=== PATIENT | male | born 1930 | race Caucasian/White ===

== ENCOUNTER 2018-05-23 15:30 | Inpatient (IN) | payer MEDICARE, BC ==
[~2018-05-23] VITALS: Ht 177.8 cm; Wt 75.3 kg
[2018-05-23] MEDS ORDERED: DABI150C PO (15:43)
--- NOTE | 2018-05-23 15:50 | NUR ---
PT CAME IN FOR LEFT LEG SWELLING/PAIN/ POSSIBLE CELLULITIS. PT AAOX4. SEEN BY MD FOR EVAL. VSS. SAFETY AND COMFORT MEASURES PROVIDED. WILL MONITOR.
[2018-05-23] MEDS ORDERED: VANCOMYCIN 1 GM in IV D5W 250 ML IV ONE (16:00)
[2018-05-23 16:13] LABS: BASOPHILS # (AUTO) 0.1 /CMM (0.0-0.2); BASOPHILS % (AUTO) 1.5 % (0.0-2.0); HEMATOCRIT 35 % (39-51); HEMOGLOBIN 11.7 g/dL (13.5-17.5); LYMPHOCYTES # (AUTO) 0.9 /CMM (0.8-4.8); LYMPHOCYTES % (AUTO) 14.9 % (20.0-44.0); MEAN CORPUSCULAR HEMOGLOBIN 32 PG (26.0-33.0); MEAN CORPUSCULAR HGB CONC 33 g/dl (31.0-36.0); MEAN CORPUSCULAR VOLUME 96 fL (80-96); MONOCYTES # (AUTO) 0.9 /CMM (0.1-1.30); NEUTROPHILS # (AUTO) 3.8 /CMM (1.8-8.9); NEUTROPHILS % (AUTO) 64.6 % (43.0-81.0); PLATELET COUNT (AUTO) 215 /CMM (150-450); RDW COEFFICIENT OF VARIATION 13.5 (11.5-15.0); RED BLOOD CELL COUNT(AUTO) 3.67 MIL/uL (4.5-6.0); WHITE BLOOD COUNT (AUTO) 5.9 K/uL (4.3-11.0)
[2018-05-23 16:27] LABS: INR 1.11 (0.85-1.15)
[2018-05-23 16:28] LABS: CALCIUM, SERUM 8.8 mg/dL (8.5-10.1); CARBON DIOXIDE 27 mmol/L (21-32); CHLORIDE 103 mmol/L (98-107); CREATININE 1.3 mg/dL (0.6-1.3); GLUCOSE 95 mg/dL (74-106); POTASSIUM 4.3 mmol/L (3.5-5.1); SODIUM SERUM 137 mmol/L (136-145); UREA NITROGEN, BLOOD 29 mg/dL (7-18)
[2018-05-23 16:30] LABS: TROPONIN I < 0.017 ng/mL (0.00-0.056)
[2018-05-23 16:43] LABS: ALANINE AMINOTRANSFERASE 25 U/L (12-78); ALBUMIN 3.3 g/dL (3.4-5.0); ALKALINE PHOSPHATASE 176 U/L (46-116); ASPARTATE AMINOTRANSFERASE 34 U/L (15-37); B-TYPE NATRIURETIC PEPTIDE 1656 PG/ML (0-125); BILIRUBIN,DIRECT 0.4 mg/dL (0.0-0.2); BILIRUBIN,TOTAL 1.2 mg/dL (0.2-1.0); TOTAL PROTEIN, SERUM 7.4 g/dL (6.4-8.2)
--- NOTE | 2018-05-23 16:49 | NUR ---
PT ASSIGNED M/S 312-1
[2018-05-23 17:04] LABS: APPEARANCE,URINE Clear (CLEAR); BILIRUBIN,URINE Negative (NEGATIVE); BLOOD, URINE Negative Ery/uL (NEGATIVE); COLOR,URINE Yellow (YELLOW); KETONES,URINE Negative (NEGATIVE); LEUKOCYTE ESTERASE ,URINE Trace (NEGATIVE); NITRITE, URINE Negative (NEGATIVE); PROTEIN,URINE Negative (NEGATIVE); UGLUCOSE Negative (NEGATIVE); UROBILINOGEN,URINE 0.2 EU/dL (0.2)
[2018-05-23 17:05] LABS: BACTERIA,URINE Rare /HPF (None Seen); RBC,URINE 0-2 /HPF (0-2); SQUAMOUS EPITHELIAL CELL,UR Rare /HPF (None Seen)
--- NOTE | 2018-05-23 17:05 | NUR ---
PAGED SAVITA SEAY FOR PANEL ADMISSION
[2018-05-23] MEDS ORDERED: CELE200C PO (17:15)
[2018-05-23] MEDS ORDERED: ATOR40TA PO (17:15)
[2018-05-23] MEDS ORDERED: METO-358 PO (17:15)
[2018-05-23] MEDS ORDERED: MAGNESIUM HYDROXIDE 30 ML UDC PO PRN (17:30)
[2018-05-23] MEDS ORDERED: ACETAMINOPHEN 325 MG TABLET PO PRN (17:30)
[2018-05-23] MEDS ORDERED: ZOLPIDEM TARTRATE 5 MG TABLET PO PRN (17:30)
[2018-05-23] MEDS ORDERED: ONDANSETRON HCL/PF 4 MG/2 ML VIAL IVP PRN (17:30)
[2018-05-23] MEDS ORDERED: Z GUARD REMEDY 2 OZ OINT TP PRN (17:30)
[2018-05-23] MEDS ORDERED: HYDROCODONE/APAP 5/325MG 1 EACH TABLET PO PRN (17:30)
--- NOTE | 2018-05-23 17:33 | NUR ---
REPORT GIVEN TO ANIKA HILL OR MS 312.
[2018-05-23] MEDS ORDERED: FEE PK DOSING 1 MIN EA MC ONE (17:55)
[2018-05-23] MEDS ORDERED: FUROSEMIDE 20 MG/2 ML VIAL IV ONE (18:00)
[2018-05-23 18:51] VITALS: BP 153/83
--- NOTE | 2018-05-23 19:30 | NUR ---
MS PRAVIN OPENING NOTE Patient was admitted to the unit from the ED several minutes before shift change. Vital signs are stable. BP is slightly elevated, but patient is scheduled to receive metoprolol, which will be administered as ordered. Patient is AAOx4, breathing on RA with no SOB, and currently no signs of acute distress. SL 20g IV in the right wrist is intact and patent. Left lower leg is red and edematous (admitted for cellulitis); pictures have been taken per unit policy. Initial physical assessment has been completed and is unremarkable; past medical history has been obtained. The patient has been oriented to his room and educated on the use of his call roberts. All new orders have been acknowledged. Bed is in the low/locked position, two side rails up, and call roberts within reach. Patient has no immediate needs or concerns at this time. Will continue to monitor.
--- NOTE | 2018-05-23 19:40 | NUR ---
MS RN NOTES PT ARRIVED VIA GURNEY ACCOMPANIED BY ER STAFF IN STABLE CONDITION. PT IS A/O4, RESPIRATIONS ARE EVEN AND UNLABORED, NOT IN ANY ACUTE DISTRESS NOTED. PT DENIES ANY PAIN AT THIS TIME. IV SITE INTACT. ENDORSED TO NEXT SHIFT FOR CONTINUITY OF CARE.
[2018-05-23] MEDS: METOPROLOL SUCCINATE 50 MG TAB.SR.24H PO SCH (19:52)
[2018-05-23 20:00] VITALS: BP 163/75
[2018-05-23] MEDS: ATORVASTATIN 40 MG TABLET PO SCH (22:00)
[2018-05-24] MEDS: VANCOMYCIN 0.75 GM in IV NS 0.9% 250 ML IV SCH ×2 (03:30→16:30)
[2018-05-24 06:39] LABS: BASOPHILS % (AUTO) 0.2 % (0.0-2.0); EOSINOPHILS % (AUTO) 2.7 % (0.0-6.0); HEMATOCRIT 32 % (39-51); HEMOGLOBIN 10.9 g/dL (13.5-17.5); LYMPHOCYTES # (AUTO) 0.7 /CMM (0.8-4.8); LYMPHOCYTES % (AUTO) 12.9 % (20.0-44.0); MEAN CORPUSCULAR HEMOGLOBIN 33 PG (26.0-33.0); MEAN CORPUSCULAR HGB CONC 34 g/dl (31.0-36.0); MEAN CORPUSCULAR VOLUME 98 fL (80-96); MONOCYTES # (AUTO) 0.9 /CMM (0.1-1.30); MONOCYTES % (AUTO) 16.6 % (2.0-12.0); NEUTROPHILS # (AUTO) 3.8 /CMM (1.8-8.9); NEUTROPHILS % (AUTO) 67.6 % (43.0-81.0); PLATELET COUNT (AUTO) 193 /CMM (150-450); RDW COEFFICIENT OF VARIATION 14.2 (11.5-15.0); WHITE BLOOD COUNT (AUTO) 5.6 K/uL (4.3-11.0)
[2018-05-24 07:01] LABS: ALANINE AMINOTRANSFERASE 22 U/L (12-78); ALBUMIN 2.9 g/dL (3.4-5.0); ALKALINE PHOSPHATASE 153 U/L (46-116); ASPARTATE AMINOTRANSFERASE 28 U/L (15-37); BILIRUBIN,TOTAL 1.1 mg/dL (0.2-1.0); CALCIUM, SERUM 8.5 mg/dL (8.5-10.1); CARBON DIOXIDE 27 mmol/L (21-32); CHLORIDE 101 mmol/L (98-107); CHOLESTEROL 114 mg/dL (<200); CREATININE 1.4 mg/dL (0.6-1.3); GLUCOSE 107 mg/dL (74-106); HDL CHOLESTEROL 48 mg/dL (40-60); LDL 59 mg/dL (0-99); PHOSPHORUS 3.6 mg/dL (2.5-4.9); POTASSIUM 4.2 mmol/L (3.5-5.1); SODIUM SERUM 135 mmol/L (136-145); THYROID STIMULATING HORMONE 1.008 uIU/mL (0.358-3.74); TOTAL PROTEIN, SERUM 6.5 g/dL (6.4-8.2); TRIGLYCERIDES 36 mg/dL (30-150); UREA NITROGEN, BLOOD 28 mg/dL (7-18)
--- NOTE | 2018-05-24 07:42 | NUR ---
MS RN CLOSING NOTE Patient is AAOx4, breathing on RA with no SOB, and no signs of acute distress. Patient slept intermittently overnight but had no complaints or complications. Patient was able to ambulate to the bathroom independently. IV in the right wrist is intact and patent. Bed is low/locked, two side rails up, and call roberts within reach. Patient remains in stable condition. Patient care endorsed to day shift nurse.
--- NOTE | 2018-05-24 07:55 | NUR ---
MS RN OPENING NOTES RECEIVED PT FROM NIGHTSHIFT NURSE IN STABLE CONDITION. PT IS A/O X3. NO SOB OR ACUTE SIGNS OF DISTRESS NOTED. BREATHING IS EVEN AND UNLABORED. HE DENIES ANY PAIN AT THIS TIME. IV TO RIGHT WRIST NOTED TO BE PATENT AND INTACT. NO REDNESS OR SIGNS OF INFILTRATION NOTED. BED IN LOW LOCKED POSITION, SIDE RAILS UP X2, CALL LIGHT WITHIN REACH. WILL CONTINUE TO MONITOR
[2018-05-24 08:00] VITALS: BP 158/83
[2018-05-24 08:38] LABS: EOSINOPHILS % (MANUAL) 1 % (0-4); LYMPHOCYTES % (MANUAL) 10 % (16-48); MONOCYTES % (MANUAL) 8 % (0-11.0); NEUTROPHILS % (MANUAL) 81 (42-76)
[2018-05-24] MEDS: CELECOXIB 100 MG CAPSULE PO SCH (09:59)
[2018-05-24] MEDS: DABIGATRAN ETEXILATE MESYLATE 150 MG CAPSULE PO SCH ×2 (09:59→17:32)
--- NOTE | 2018-05-24 10:29 | NUR ---
MS RN NOTES: SHOWER ORDER DR. SEAY CONTACTED PT IS REQUESTING THAT HE SHOWER. GAVE TELEPHONE ORDER GRANTING SHOWER PRIVILEGES
--- NOTE | 2018-05-24 14:20 | NUR ---
WOUND CARE CONSULT: PT PRESENTS WITH SWELLING, REDNESS AND DISCOLORATION WITH SOME WEEPING TO LEFT LOWER LEG, PRESENT ON ADMISSION. RECOMMENDATIONS MADE FOR SKIN CARE AND DISCUSSED WITH NURSING STAFF. PT IS AMBULATORY WITH CURRENT ANDRZEJ SCORE OF 20. WILL SEE PRN. PILLAI IN AGREEMENT WITH PLAN OF CARE. Addendum: 05/24/18 at 1421 by JEAN PAUL CHAN WNDNU Amended: Links added.
[2018-05-24 16:00] VITALS: BP 165/83
[2018-05-24] MEDS: METOPROLOL SUCCINATE 50 MG TAB.SR.24H PO SCH (16:32)
--- NOTE | 2018-05-24 17:06 | NUR ---
1700 PRADAXA ADMINISTERED PER MD ORDER
--- NOTE | 2018-05-24 18:48 | NUR ---
MS RN CLOSING NOTES PT REMAINS STABLE. ALL NEEDS ANTICIPATED FOR AND MET. ALL DUE MEDS GIVEN. WOUND AND SKIN CARE RENDERED ORDERED. CT RESULTS REMAIN PENDING. PT CONTINUES TO DENY ANY PAIN. IV REMAINS PATENT AND INTACT. SAFETY MEASURES IN PLACE. WILL ENDORSE TO NIGHTSHIFT NURSE FOR MERLE
[2018-05-24 19:04] LABS: IRON, SERUM 29 ug/dl (50-175); TOTAL IRON BINDING CAPACITY 302 ug/dl (250-450)
--- NOTE | 2018-05-24 19:05 | NUR ---
RN OPENING NOTES PT AWAKE AND ALERT, RESTING IN BED. NO COMPLAINTS OF PAIN, SOB OR DISTRESS AT THIS TIME. PT SATING WELL ON RA. PT HAS A RIGHT WRIST #22 IV, INTACT AND PATENT. SAFETY PRECAUTIONS IN PLACE, BED IN LOWEST LOCKED, POSITION, X2 SIDE RAILS UP, AND CALL LIGHT WITHIN REACH. WILL CONTINUE TO MONITOR.
[2018-05-24 19:17] LABS: FERRITIN 109 ng/mL (8-388)
--- NOTE | 2018-05-24 19:53 | NUR ---
RN NOTES PT GRANDDAUGHTER REQUESTED TO BE CONTACTED BY DR ZHU. CONTACT INFORMATION: LIZANDRO HARDY WILL ENDORSE TO DAY SHIFT NURSE FOR CONTINUITY OF CARE.
[2018-05-24 20:00] VITALS: BP 128/66
[2018-05-24] MEDS: ATORVASTATIN 40 MG TABLET PO SCH (21:28)
[2018-05-25] MEDS: VANCOMYCIN 0.75 GM in IV NS 0.9% 250 ML IV SCH ×2 (04:31→16:54)
[2018-05-25 07:22] LABS: BASOPHILS % (AUTO) 0.3 % (0.0-2.0); EOSINOPHILS % (AUTO) 1.9 % (0.0-6.0); HEMATOCRIT 36 % (39-51); HEMOGLOBIN 11.9 g/dL (13.5-17.5); LYMPHOCYTES # (AUTO) 0.8 /CMM (0.8-4.8); LYMPHOCYTES % (AUTO) 11.9 % (20.0-44.0); MEAN CORPUSCULAR HEMOGLOBIN 33 PG (26.0-33.0); MEAN CORPUSCULAR HGB CONC 33 g/dl (31.0-36.0); MEAN CORPUSCULAR VOLUME 98 fL (80-96); MONOCYTES # (AUTO) 0.9 /CMM (0.1-1.30); MONOCYTES % (AUTO) 12.5 % (2.0-12.0); NEUTROPHILS # (AUTO) 5.1 /CMM (1.8-8.9); NEUTROPHILS % (AUTO) 73.4 % (43.0-81.0); PLATELET COUNT (AUTO) 236 /CMM (150-450); RDW COEFFICIENT OF VARIATION 14.1 (11.5-15.0); RED BLOOD CELL COUNT(AUTO) 3.64 MIL/uL (4.5-6.0)
--- NOTE | 2018-05-25 07:40 | NUR ---
MS RN OPENING NOTES RECEIVED PT FROM NIGHTSHIFT NURSE IN STABLE CONDITION. PT IS A/O X3. NO SOB OR ACUTE SIGNS OF DISTRESS NOTED. BREATHING IS EVEN AND UNLABORED. HE DENIES ANY PAIN AT THIS TIME. IV TO RIGHT WRIST NOTED TO BE PATENT AND INTACT. NO REDNESS OR SIGNS OF INFILTRATION NOTED. WOUND DRESSINGS NOTED TO BE CLEAN, DRY, AND INTACT. PT'S LEFT LOWER EXTREMITY ELEVATED ON PILLOWS ORDERED. BED IN LOW LOCKED POSITION, SIDE RAILS UP X2, CALL LIGHT WITHIN REACH. WILL CONTINUE TO MONITOR
[2018-05-25 07:52] LABS: CALCIUM, SERUM 9.1 mg/dL (8.5-10.1); CARBON DIOXIDE 25 mmol/L (21-32); CHLORIDE 103 mmol/L (98-107); CREATININE 1.3 mg/dL (0.6-1.3); GLUCOSE 112 mg/dL (74-106); MAGNESIUM 2.1 mg/dL (1.8-2.4); PHOSPHORUS 3.3 mg/dL (2.5-4.9); POTASSIUM 4.1 mmol/L (3.5-5.1); SODIUM SERUM 137 mmol/L (136-145); UREA NITROGEN, BLOOD 21 mg/dL (7-18)
--- NOTE | 2018-05-25 07:58 | NUR ---
RN CLOSING NOTES PT AWAKE AND ALERT, RESTING IN BED. NO COMPLAINTS OF PAIN, SOB OR DISTRESS OVERNIGHT. PT SATING WELL ON RA. PT HAS A RIGHT WRIST #22 IV, INTACT AND PATENT. SAFETY PRECAUTIONS IN PLACE, BED IN LOWEST LOCKED, POSITION, X2 SIDE RAILS UP, AND CALL LIGHT WITHIN REACH. WILL ENDORSE TO DAY SHIFT NURSE FOR CONTINUITY OF CARE.
[2018-05-25 08:00] VITALS: BP 140/69
--- NOTE | 2018-05-25 08:07 | NUR ---
WOUND CARE FOLLOWUP: LEFT LOWER LEG CONTINUES TO BE SWOLLEN AND RED AND HARD AREA NOTED TO LATERAL LOWER LEG AND REDDISH BROWN DISCOLORATION TO LATERAL LOWER LEG WITH SOME SEROSANGUINOUS DRAINAGE. CONTINUE PRESENT TREATMENT, ELEVATE LEG AND RECOMMEND DPM CONSULT. DISCUSSED WITH NURSING STAFF. MD IN AGREEMENT WITH PLAN OF CARE.
[2018-05-25] MEDS: CELECOXIB 100 MG CAPSULE PO SCH (09:15)
[2018-05-25] MEDS: DABIGATRAN ETEXILATE MESYLATE 150 MG CAPSULE PO SCH ×2 (09:19→17:04)
--- NOTE | 2018-05-25 09:23 | NUR ---
MS RN NOTES: PRADAXA ADMINISTRATION PT'S CT RESULTS DISCUSSED WITH MD WHOM STATES THAT PT MAY BE GIVEN HIS PRADAXA AND IF NEED BE, IT MAY BE STOPPED A DAY PRIOR IF PT OPTS FOR A SURGICAL INCISION AND DRAINAGE. MEDICATION ADMINISTERED ORDERED
[2018-05-25] MEDS: DAKINS QUARTER STRENGTH (0.125%) 480 ML BOTTLE TOP SCH (11:06)
[2018-05-25] MEDS: SOD FERRIC GLUC 125 MG in IV NS 0.9% 100 ML IV SCH (14:39)
[2018-05-25 16:00] VITALS: BP 135/70
[2018-05-25] MEDS: METOPROLOL SUCCINATE 50 MG TAB.SR.24H PO SCH (16:58)
--- NOTE | 2018-05-25 17:38 | NUR ---
MS RN NOTES: OB STOOL OB STOOL SAMPLE OBTAINED FROM PATIENT. EDI DEVELOPER CALLED FOR KEY ACCOUNT REPRESENTATIVE
--- NOTE | 2018-05-25 18:36 | NUR ---
MS RN CLOSING NOTES PT REMAINS STABLE. ALL NEEDS ANTICIPATED FOR AND MET. ALL DUE MEDS GIVEN. WOUND AND SKIN CARE RENDERED ORDERED. HE DENIES ANY PAIN. IV REMAINS PATENT AND INTACT. NO S/S OF BLEEDING NOTED THROUGHOUT SHIFT. SAFETY MEASURES IN PLACE. WILL ENDORSE TO NIGHTSHIFT NURSE FOR MERLE
--- NOTE | 2018-05-25 19:42 | NUR ---
MS/RN OPENING NOTES PATIENT IN BED, AWAKE, ALERT X4, ABLE TO VERBALIZE NEEDS, DENIES PAIN, NO GRIMACE AND NO GUARDING, RESPIRATIONS EVEN AND UNLABORED, SKIN WARM TO TOUCH, IV SITE ON RIGHT WRIST 22 GAUGE, PATENT AND W/ NO S/S OF INFILTRATION, CALL LIGHTS WITHIN REACH, BED IN LOCK POSITION, RECEIVED ENDORSEMENT FROM AM RN FOR MERLE,WILL MONITOR, PLAN OF CARE PROVIDED, PATIENT VERBALIZED WANT TO REST AND ABLE TO PARTICIPATE WITH CARE, INSTRUCT TO CALL FOR ASSISTANCE, OFFERED FLUIDS, BELONGINGS WITHIN REACH.
[2018-05-25 20:00] VITALS: BP 141/88
[2018-05-25] MEDS: ATORVASTATIN 40 MG TABLET PO SCH (21:55)
[2018-05-25 22:12] LABS: OCCULT BLOOD STOOL NEGATIVE (NEGATIVE)
--- NOTE | 2018-05-26 07:01 | NUR ---
312-1 MS/RN NOTES PATIENT IN BED, ABLE TO SLEEP DURING THE NIGHT, VERBALIZE NEEDS, DENIES ANY PAIN OR DISCOMFORT, CALL LIGHTS WITHIN REACH, BED IN LOCK POSITION, WILL CONTINUE AND PROVIDE CARE, WILL ENDORSE TO AM RN FOR MERLE.
[2018-05-26 07:51] LABS: BASOPHILS % (AUTO) 0.2 % (0.0-2.0); EOSINOPHILS % (AUTO) 1.8 % (0.0-6.0); HEMATOCRIT 34 % (39-51); HEMOGLOBIN 11.4 g/dL (13.5-17.5); LYMPHOCYTES # (AUTO) 0.6 /CMM (0.8-4.8); LYMPHOCYTES % (AUTO) 10.4 % (20.0-44.0); MEAN CORPUSCULAR HEMOGLOBIN 33 PG (26.0-33.0); MEAN CORPUSCULAR HGB CONC 34 g/dl (31.0-36.0); MEAN CORPUSCULAR VOLUME 98 fL (80-96); MONOCYTES # (AUTO) 0.8 /CMM (0.1-1.30); MONOCYTES % (AUTO) 14.1 % (2.0-12.0); NEUTROPHILS # (AUTO) 4.3 /CMM (1.8-8.9); NEUTROPHILS % (AUTO) 73.5 % (43.0-81.0); PLATELET COUNT (AUTO) 209 /CMM (150-450); RDW COEFFICIENT OF VARIATION 14.3 (11.5-15.0); RED BLOOD CELL COUNT(AUTO) 3.48 MIL/uL (4.5-6.0); WHITE BLOOD COUNT (AUTO) 5.8 K/uL (4.3-11.0)
[2018-05-26 08:00] VITALS: BP 162/80
--- NOTE | 2018-05-26 08:00 | NUR ---
MS RN RECEIVED ON BED, AWAKE,ALERT,ORIENTED X4,NOT IN ANY FORM OF DISTRESS, RESPIRATIONS EVEN AND UNLABORED,NO SOB NOTED, LUNGS ARE CLEAR,ABDOMEN SOFT,POSITIVE BOWEL SOUNDS, DENIES PAIN AT THIS TIME, WILL MONITOR PATIENT'S CONDITION.
[2018-05-26 08:05] LABS: CALCIUM, SERUM 8.9 mg/dL (8.5-10.1); CARBON DIOXIDE 26 mmol/L (21-32); CHLORIDE 104 mmol/L (98-107); CREATININE 1.2 mg/dL (0.6-1.3); GLUCOSE 97 mg/dL (74-106); MAGNESIUM 2.1 mg/dL (1.8-2.4); PHOSPHORUS 3.1 mg/dL (2.5-4.9); POTASSIUM 4.1 mmol/L (3.5-5.1); SODIUM SERUM 139 mmol/L (136-145); UREA NITROGEN, BLOOD 18 mg/dL (7-18)
--- NOTE | 2018-05-26 10:00 | NUR ---
MS COSTELLO BREAKFAST SERVED,DUE MEDS GIVEN,TOLERATED WELL.
[2018-05-26] MEDS: CELECOXIB 100 MG CAPSULE PO SCH (10:11)
[2018-05-26] MEDS: VANCOMYCIN 0.75 GM in IV NS 0.9% 250 ML IV SCH (10:11)
[2018-05-26] MEDS: DAKINS QUARTER STRENGTH (0.125%) 480 ML BOTTLE TOP SCH (10:12)
[2018-05-26] MEDS: DABIGATRAN ETEXILATE MESYLATE 150 MG CAPSULE PO SCH ×2 (10:18→17:49)
--- NOTE | 2018-05-26 14:00 | NUR ---
MS RN WAS SEEN BY JEANCARLOS PEÑALOZA, DID THE WOUND DRESSING ,NO DISTRESS NOTED.
[2018-05-26 16:00] VITALS: BP 135/73
[2018-05-26] MEDS: SOD FERRIC GLUC 125 MG in IV NS 0.9% 100 ML IV SCH (17:47)
[2018-05-26] MEDS: METOPROLOL SUCCINATE 50 MG TAB.SR.24H PO SCH (17:47)
--- NOTE | 2018-05-26 18:31 | NUR ---
MS RN ON BED, NO DISTRESS NOTED, ALL NEEDS ATTENDED.
--- NOTE | 2018-05-26 19:15 | NUR ---
RN OPENING NOTES PATIENT IN BED, ALERT AND ORIENTED X 4, ABLE TO MAKE NEEDS KNOWN, IN NO APPARENT DISTRESS AT THIS TIME, NO SOB AND BREATHING EVEN AND UNLABORED. PT DENIES PAIN, NO NAUSEA. ALL PATIENT'S NEEDS ATTENDED TO, CALL LIGHT WITHIN REACH. BED IN LOW POSITION AND LOCKED IN PLACE. WILL CONTINUE TO MONITOR.
[2018-05-26 20:00] VITALS: BP 146/70
[2018-05-26] MEDS: ATORVASTATIN 40 MG TABLET PO SCH (21:15)
[2018-05-27] MEDS: VANCOMYCIN 0.75 GM in IV NS 0.9% 250 ML IV SCH (04:00)
--- NOTE | 2018-05-27 04:03 | NUR ---
RN NOTES NOTED PT WITH SKIN TEAR ON LEFT ELBOW AREA.NOTED AREA WITH NO BLEEDING, PT WITH NO C/O PAIN. CLEANSED WITH NS, PAT DRY, COVERED WITH DRY DRESSING. OBTAINED ORDER FOR WOUND CONSULT. ALL ORDERS NOTED AND CARRIED OUT.
--- NOTE | 2018-05-27 06:32 | NUR ---
RN CLOSING NOTES PATIENT IN BED, ALERT AND ORIENTED X 4, NO SOB, BREATHING EVEN AND UNLABORED. PT DENIES PAIN AT THIS TIME, IN NO ACUTE DISTRESS. ALL PATIENT'S NEEDS ATTENDED TO THROUGHOUT THE SHIFT, DUE MEDICATION GIVEN. PLACED BED IN LOW POSITION AND LOCKED IN PLACE. PLACED CALL LIGHT WITHIN EASY REACH. WILL ENDORSE TO AM SHIFT NURSE FOR CONTINUITY OF CARE.
[2018-05-27 06:33] LABS: BASOPHILS % (AUTO) 0.4 % (0.0-2.0); EOSINOPHILS % (AUTO) 2.7 % (0.0-6.0); HEMATOCRIT 33 % (39-51); HEMOGLOBIN 10.9 g/dL (13.5-17.5); LYMPHOCYTES # (AUTO) 0.7 /CMM (0.8-4.8); MEAN CORPUSCULAR HEMOGLOBIN 33 PG (26.0-33.0); MEAN CORPUSCULAR HGB CONC 33 g/dl (31.0-36.0); MEAN CORPUSCULAR VOLUME 98 fL (80-96); MONOCYTES % (AUTO) 16.9 % (2.0-12.0); NEUTROPHILS # (AUTO) 4.1 /CMM (1.8-8.9); PLATELET COUNT (AUTO) 209 /CMM (150-450); RDW COEFFICIENT OF VARIATION 14.1 (11.5-15.0); RED BLOOD CELL COUNT(AUTO) 3.34 MIL/uL (4.5-6.0)
[2018-05-27 06:47] LABS: CALCIUM, SERUM 8.4 mg/dL (8.5-10.1); CARBON DIOXIDE 27 mmol/L (21-32); CHLORIDE 103 mmol/L (98-107); CREATININE 1.2 mg/dL (0.6-1.3); GLUCOSE 111 mg/dL (74-106); MAGNESIUM 1.9 mg/dL (1.8-2.4); PHOSPHORUS 2.8 mg/dL (2.5-4.9); POTASSIUM 3.9 mmol/L (3.5-5.1); SODIUM SERUM 138 mmol/L (136-145); UREA NITROGEN, BLOOD 16 mg/dL (7-18)
[2018-05-27 08:00] VITALS: BP 116/75
--- NOTE | 2018-05-27 08:00 | NUR ---
MS RN RECEIVED ON BED, AWAKE,ALERT,ORIENTED X4, NOT IN ANY FORM OF DISTRESS,RESPIRATIONS EVEN AND UNLABORED,NO SOB NOTED, LUNGS ARE CLEAR,ABDOMEN SOFT,POSITIVE BOWEL SOUNDS,DENIES PAIN AT THIS TIME,ALL NEEDS ATTENDED.
--- NOTE | 2018-05-27 08:30 | NUR ---
MS COSTELLO BREAKFAST SERVED,DUE MEDS GIVEN,TOLERATED WELL.
[2018-05-27 08:54] LABS: BAND % (MANUAL) 1 % (0.0-5.0); EOSINOPHILS % (MANUAL) 4 % (0-4); LYMPHOCYTES % (MANUAL) 4 % (16-48); MONOCYTES % (MANUAL) 10 % (0-11.0); NEUTROPHILS % (MANUAL) 81 (42-76)
[2018-05-27] MEDS: CELECOXIB 100 MG CAPSULE PO SCH (09:57)
[2018-05-27] MEDS: DABIGATRAN ETEXILATE MESYLATE 150 MG CAPSULE PO SCH (10:00)
[2018-05-27] MEDS ORDERED: SULF1TAB48 PO (12:48)
[2018-05-27] MEDS: SOD FERRIC GLUC 125 MG in IV NS 0.9% 100 ML IV SCH (15:01)
[2018-05-27] MEDS: DAKINS QUARTER STRENGTH (0.125%) 480 ML BOTTLE TOP SCH (15:04)
--- NOTE | 2018-05-27 16:00 | NUR ---
ms rn went home accompanied by grand daughter,all needs attended.
== END 2018-05-27 16:15 | disposition home or self-care (01) | DRG 602 ==
LOC: ER 15:31 → MED 17:03
PROVIDERS: ADMIT Nurse Practitioner Acute Care; ATTEND Nurse Practitioner Acute Care
DX: L03.116 Cellulitis of left lower limb (principal); I50.33 Acute on chronic diastolic (congestive) heart failure; D68.59 Other primary thrombophilia; I31.3 Pericardial effusion (noninflammatory); I11.0 Hypertensive heart disease with heart failure; I48.2 Chronic atrial fibrillation; Z88.0 Allergy status to penicillin; Z87.891 Personal history of nicotine dependence; Z96.641 Presence of right artificial hip joint; M19.90 Unspecified osteoarthritis, unspecified site; E78.5 Hyperlipidemia, unspecified; Z79.899 Other long term (current) drug therapy; D50.9 Iron deficiency anemia, unspecified; W20.8XXA Other cause of strike by thrown, projected or falling object, initial encounter; Y92.9 Unspecified place or not applicable; S80.12XA Contusion of left lower leg, initial encounter; I73.9 Peripheral vascular disease, unspecified; T45.515A Adverse effect of anticoagulants, initial encounter; Y92.009 Unspecified place in unspecified non-institutional (private) residence as the place of occurrence of the external cause
CPT/HCPCS: 36415; 71045-TC; 73700-TC; 80048-TC; 80053-TC; 80061-TC; 80076-TC; 80202-TC; 81000-TC; 82272-TC; 82728-TC; 83540-TC; 83605-TC; 83735-TC; 83880; 84100-TC; 84443-TC; 84484-TC; 85025-TC; 85652-TC; 85730-TC; 87040-TC; 87081-TC; 87086-TC; 93307-TC; 93971-TC; A4606; A6253; A6402; A6403; J1940; J2916; J3370; J7030; J7050; J7060; Z7610

== ENCOUNTER 2018-06-04 08:00 | Outpatient (CLI) | payer MEDICARE, BC ==
[~2018-06-04 08:00] MED LIST: ATOR40TA PO; CELE200C PO; DABI150C PO; METO-358 PO; SULF1TAB48 PO
== END 2018-06-04 23:59 | disposition home health service (06) ==
LOC: WOU 08:00
PROVIDERS: ATTEND Podiatrist Foot & Ankle Surgery
DX: S81.802A Unspecified open wound, left lower leg, initial encounter (principal); S80.12XA Contusion of left lower leg, initial encounter; R60.0 Localized edema; W22.8XXA Striking against or struck by other objects, initial encounter; I48.2 Chronic atrial fibrillation; M19.90 Unspecified osteoarthritis, unspecified site; Z79.01 Long term (current) use of anticoagulants; Y93.89 Activity, other specified; Y92.89 Other specified places as the place of occurrence of the external cause; Y99.9 Unspecified external cause status; Z96.641 Presence of right artificial hip joint
CPT/HCPCS: 11042; A6402; Z7610

== ENCOUNTER 2018-06-10 09:00 | Outpatient (CLI) | payer MEDICARE, BC | END 2018-06-10 23:59 | disposition home or self-care (01) | LOC: WOU 09:00 | PROVIDERS: ATTEND Podiatrist Foot & Ankle Surgery | DX: I70.202 Unspecified atherosclerosis of native arteries of extremities, left leg (principal); I77.1 Stricture of artery | CPT/HCPCS: 93926; A6402; Z7610 ==

== ENCOUNTER 2018-06-11 08:23 | Outpatient (CLI) | payer MEDICARE, BC | END 2018-06-11 23:59 | disposition home or self-care (01) | LOC: WOU 08:23 | PROVIDERS: ATTEND Podiatrist Foot & Ankle Surgery | DX: S81.812A Laceration without foreign body, left lower leg, initial encounter (principal); W22.8XXA Striking against or struck by other objects, initial encounter; Y92.89 Other specified places as the place of occurrence of the external cause; I87.8 Other specified disorders of veins; R60.0 Localized edema; S80.12XA Contusion of left lower leg, initial encounter; I70.202 Unspecified atherosclerosis of native arteries of extremities, left leg | CPT/HCPCS: 11042; A6402; Z7610 ==

== ENCOUNTER 2018-06-18 08:10 | Outpatient (CLI) | payer MEDICARE, BC | END 2018-06-18 23:59 | disposition home or self-care (01) | LOC: WOU 08:10 | PROVIDERS: ATTEND Podiatrist Foot & Ankle Surgery | DX: S81.812A Laceration without foreign body, left lower leg, initial encounter (principal); W22.8XXA Striking against or struck by other objects, initial encounter; Y92.89 Other specified places as the place of occurrence of the external cause; Z88.0 Allergy status to penicillin; S80.12XD Contusion of left lower leg, subsequent encounter; W22.8XXD Striking against or struck by other objects, subsequent encounter; I87.8 Other specified disorders of veins; I77.9 Disorder of arteries and arterioles, unspecified | CPT/HCPCS: 11042; A6402; Z7610 ==

== ENCOUNTER 2018-06-25 08:00 | Outpatient (CLI) | payer MEDICARE, BC | END 2018-06-25 23:59 | disposition home or self-care (01) | LOC: WOU 08:00 | PROVIDERS: ATTEND Podiatrist Foot & Ankle Surgery | DX: L97.822 Non-pressure chronic ulcer of other part of left lower leg with fat layer exposed (principal); S81.812S Laceration without foreign body, left lower leg, sequela; W22.8XXS Striking against or struck by other objects, sequela; I87.2 Venous insufficiency (chronic) (peripheral); R60.0 Localized edema; Z79.01 Long term (current) use of anticoagulants; Z79.899 Other long term (current) drug therapy | CPT/HCPCS: 11042; 11043; A6402; A6407; Z7610 ==

== ENCOUNTER 2018-07-02 12:15 | Outpatient (CLI) | payer MEDICARE, BC | END 2018-07-02 23:59 | disposition home or self-care (01) | LOC: WOU 12:15 | PROVIDERS: ATTEND Podiatrist Foot & Ankle Surgery | DX: S81.812A Laceration without foreign body, left lower leg, initial encounter (principal); W22.8XXA Striking against or struck by other objects, initial encounter; Y92.89 Other specified places as the place of occurrence of the external cause; Z88.0 Allergy status to penicillin; Z79.01 Long term (current) use of anticoagulants; L97.929 Non-pressure chronic ulcer of unspecified part of left lower leg with unspecified severity | CPT/HCPCS: 11043; 97605-TC; A6209; A6402; Z7610 ==

== ENCOUNTER 2018-07-06 08:15 | Outpatient (CLI) | payer MEDICARE, BC | END 2018-07-06 23:59 | disposition home health service (06) | LOC: WOU 08:15 | PROVIDERS: ATTEND Podiatrist Foot & Ankle Surgery | DX: I87.2 Venous insufficiency (chronic) (peripheral) (principal); L97.822 Non-pressure chronic ulcer of other part of left lower leg with fat layer exposed; R60.0 Localized edema; Z88.0 Allergy status to penicillin; S81.812S Laceration without foreign body, left lower leg, sequela; W22.8XXS Striking against or struck by other objects, sequela | CPT/HCPCS: 11042; 11043; 87070; 87075; 87077; 87186; 97605; A6402 ×2; Z7610 ==

== ENCOUNTER 2018-07-07 09:55 | Outpatient (CLI) | payer MEDICARE, BC ==
[2018-07-07 11:04] LABS: BASOPHILS % (AUTO) 0.5 % (0.0-2.0); EOSINOPHILS % (AUTO) 1.7 % (0.0-6.0); HEMATOCRIT 36 % (39-51); HEMOGLOBIN 11.3 g/dL (13.5-17.5); LYMPHOCYTES # (AUTO) 0.6 /CMM (0.8-4.8); LYMPHOCYTES % (AUTO) 10.3 % (20.0-44.0); MEAN CORPUSCULAR HGB CONC 32 g/dl (31.0-36.0); MEAN CORPUSCULAR VOLUME 97 fL (80-96); MONOCYTES # (AUTO) 0.8 /CMM (0.1-1.30); MONOCYTES % (AUTO) 13.4 % (2.0-12.0); NEUTROPHILS # (AUTO) 4.6 /CMM (1.8-8.9); NEUTROPHILS % (AUTO) 74.1 % (43.0-81.0); PLATELET COUNT (AUTO) 189 /CMM (150-450); RED BLOOD CELL COUNT(AUTO) 3.67 MIL/uL (4.5-6.0); WHITE BLOOD COUNT (AUTO) 6.3 K/uL (4.3-11.0)
== END 2018-07-07 23:59 | disposition home or self-care (01) ==
LOC: LAB 09:55
PROVIDERS: ATTEND Podiatrist Foot & Ankle Surgery
DX: T81.89XA Other complications of procedures, not elsewhere classified, initial encounter (principal); I11.0 Hypertensive heart disease with heart failure; I50.9 Heart failure, unspecified; M19.90 Unspecified osteoarthritis, unspecified site; Z96.641 Presence of right artificial hip joint
CPT/HCPCS: 36415; 85025-TC; 85652-TC; 86140-TC

== ENCOUNTER 2018-07-09 08:00 | Outpatient (CLI) | payer MEDICARE, BC | END 2018-07-09 23:59 | disposition home health service (06) | LOC: WOU 08:00 | PROVIDERS: ATTEND Podiatrist Foot & Ankle Surgery | DX: I87.2 Venous insufficiency (chronic) (peripheral) (principal); L97.825 Non-pressure chronic ulcer of other part of left lower leg with muscle involvement without evidence of necrosis; L97.822 Non-pressure chronic ulcer of other part of left lower leg with fat layer exposed; Z79.01 Long term (current) use of anticoagulants; R60.0 Localized edema; Z87.828 Personal history of other (healed) physical injury and trauma | CPT/HCPCS: 11042; 11043; 97605; A6402; Z7610 ==

== ENCOUNTER 2018-07-13 08:00 | Outpatient (CLI) | payer MEDICARE, BC | END 2018-07-13 23:59 | disposition home health service (06) | LOC: WOU 08:00 | PROVIDERS: ATTEND Podiatrist Foot & Ankle Surgery | DX: I87.332 Chronic venous hypertension (idiopathic) with ulcer and inflammation of left lower extremity (principal); L97.822 Non-pressure chronic ulcer of other part of left lower leg with fat layer exposed; L03.116 Cellulitis of left lower limb; B95.61 Methicillin susceptible Staphylococcus aureus infection as the cause of diseases classified elsewhere; B95.4 Other streptococcus as the cause of diseases classified elsewhere | CPT/HCPCS: 11042; 11043; 87070-TC; 97605-TC; A6402; Z7610 ==

== ENCOUNTER 2018-07-16 08:00 | Outpatient (CLI) | payer MEDICARE, BC | END 2018-07-16 23:59 | disposition home health service (06) | LOC: WOU 08:00 | PROVIDERS: ATTEND Podiatrist Foot & Ankle Surgery | DX: I87.312 Chronic venous hypertension (idiopathic) with ulcer of left lower extremity (principal); L97.823 Non-pressure chronic ulcer of other part of left lower leg with necrosis of muscle; Z79.01 Long term (current) use of anticoagulants; Z79.899 Other long term (current) drug therapy | CPT/HCPCS: 11043; 97605; A6402; A6407; Z7610; A6452 ==

== ENCOUNTER 2018-07-20 08:00 | Outpatient (CLI) | payer MEDICARE, BC | END 2018-07-20 23:59 | disposition home health service (06) | LOC: WOU 08:00 | PROVIDERS: ATTEND Podiatrist Foot & Ankle Surgery | DX: I87.2 Venous insufficiency (chronic) (peripheral) (principal); L97.825 Non-pressure chronic ulcer of other part of left lower leg with muscle involvement without evidence of necrosis; Z87.2 Personal history of diseases of the skin and subcutaneous tissue; Z79.01 Long term (current) use of anticoagulants | CPT/HCPCS: 11043; 87070; 87075; 87077; 87186; 88304; 88313; A6402 ×2; A6407; Z7610 ==

== ENCOUNTER 2018-07-23 08:10 | Outpatient (CLI) | payer MEDICARE, BC | END 2018-07-23 23:59 | disposition home health service (06) | LOC: WOU 08:10 | PROVIDERS: ATTEND Podiatrist Foot & Ankle Surgery | DX: I87.312 Chronic venous hypertension (idiopathic) with ulcer of left lower extremity (principal); L97.323 Non-pressure chronic ulcer of left ankle with necrosis of muscle; L97.223 Non-pressure chronic ulcer of left calf with necrosis of muscle; Z87.828 Personal history of other (healed) physical injury and trauma | CPT/HCPCS: 11043; 87070; 87186; 97605; A6402; A6452; J7040 ×2; Z7610 ==

== ENCOUNTER 2018-07-27 11:45 | Outpatient (CLI) | payer MEDICARE, BC | END 2018-07-27 23:59 | disposition home health service (06) | LOC: WOU 11:45 | PROVIDERS: ATTEND Podiatrist Foot & Ankle Surgery | DX: I87.2 Venous insufficiency (chronic) (peripheral) (principal); L97.825 Non-pressure chronic ulcer of other part of left lower leg with muscle involvement without evidence of necrosis; I73.89 Other specified peripheral vascular diseases; R60.9 Edema, unspecified; L03.116 Cellulitis of left lower limb | CPT/HCPCS: 11043; 97605; G0463; A6402; A6452; Z7610 ==

== ENCOUNTER 2018-07-30 08:14 | Outpatient (CLI) | payer MEDICARE, BC | END 2018-07-30 23:59 | disposition home health service (06) | LOC: WOU 08:14 | PROVIDERS: ATTEND Podiatrist Foot & Ankle Surgery | DX: I87.312 Chronic venous hypertension (idiopathic) with ulcer of left lower extremity (principal); L97.825 Non-pressure chronic ulcer of other part of left lower leg with muscle involvement without evidence of necrosis; Z87.828 Personal history of other (healed) physical injury and trauma; M79.662 Pain in left lower leg; Z88.0 Allergy status to penicillin | CPT/HCPCS: 11043; 97605-TC; A6402; Z7610 ==

== ENCOUNTER 2018-08-31 08:00 | Outpatient (CLI) | payer MEDICARE, BC | END 2018-08-31 23:59 | disposition home health service (06) | LOC: WOU 08:00 | PROVIDERS: ATTEND Podiatrist Foot & Ankle Surgery | DX: I87.2 Venous insufficiency (chronic) (peripheral) (principal); L97.825 Non-pressure chronic ulcer of other part of left lower leg with muscle involvement without evidence of necrosis; L97.325 Non-pressure chronic ulcer of left ankle with muscle involvement without evidence of necrosis; R60.0 Localized edema; Z79.02 Long term (current) use of antithrombotics/antiplatelets | CPT/HCPCS: 11043; 97605; A6402; Z7610 ==

== ENCOUNTER 2018-09-21 08:00 | Outpatient (CLI) | payer MEDICARE, BC | END 2018-09-21 23:29 | disposition home or self-care (01) | LOC: WOU 08:00 | PROVIDERS: ATTEND Podiatrist Foot & Ankle Surgery | DX: I87.2 Venous insufficiency (chronic) (peripheral) (principal); L97.823 Non-pressure chronic ulcer of other part of left lower leg with necrosis of muscle | CPT/HCPCS: A6402; G0463; Z7610 ==

== ENCOUNTER 2018-09-24 08:11 | Outpatient (CLI) | payer MEDICARE, BC | END 2018-09-24 23:59 | disposition home health service (06) | LOC: WOU 08:11 | PROVIDERS: ATTEND Podiatrist Foot & Ankle Surgery | DX: I87.2 Venous insufficiency (chronic) (peripheral) (principal); L97.823 Non-pressure chronic ulcer of other part of left lower leg with necrosis of muscle; R60.0 Localized edema; L97.323 Non-pressure chronic ulcer of left ankle with necrosis of muscle; S81.812S Laceration without foreign body, left lower leg, sequela; W22.8XXS Striking against or struck by other objects, sequela | CPT/HCPCS: 11043; 97605; A6402; Z7610 ==

== ENCOUNTER 2018-09-28 07:56 | Outpatient (CLI) | payer MEDICARE, BC | END 2018-09-28 23:59 | disposition home health service (06) | LOC: WOU 07:56 | PROVIDERS: ATTEND Podiatrist Foot & Ankle Surgery | DX: I87.2 Venous insufficiency (chronic) (peripheral) (principal); L97.825 Non-pressure chronic ulcer of other part of left lower leg with muscle involvement without evidence of necrosis; R60.9 Edema, unspecified; I89.0 Lymphedema, not elsewhere classified | CPT/HCPCS: 11043; A6402 ×2; A6452; Z7610 ==

== ENCOUNTER 2018-09-29 13:30 | Outpatient (CLI) | payer MEDICARE, BC | END 2018-09-29 23:59 | disposition home health service (06) | LOC: WOU 13:30 | PROVIDERS: ATTEND Podiatrist Foot & Ankle Surgery | DX: I87.2 Venous insufficiency (chronic) (peripheral) (principal); L97.825 Non-pressure chronic ulcer of other part of left lower leg with muscle involvement without evidence of necrosis; L97.322 Non-pressure chronic ulcer of left ankle with fat layer exposed; R60.0 Localized edema; Z87.828 Personal history of other (healed) physical injury and trauma; Z88.0 Allergy status to penicillin; Z79.899 Other long term (current) drug therapy | CPT/HCPCS: 97605-TC; A6402; A6452; Z7610 ==

== ENCOUNTER 2018-10-01 07:55 | Outpatient (CLI) | payer MEDICARE, BC | END 2018-10-01 23:59 | disposition home health service (06) | LOC: WOU 07:55 | PROVIDERS: ATTEND Podiatrist Foot & Ankle Surgery | DX: I87.312 Chronic venous hypertension (idiopathic) with ulcer of left lower extremity (principal); L97.825 Non-pressure chronic ulcer of other part of left lower leg with muscle involvement without evidence of necrosis; L97.822 Non-pressure chronic ulcer of other part of left lower leg with fat layer exposed; L90.9 Atrophic disorder of skin, unspecified; Z79.01 Long term (current) use of anticoagulants; Z79.899 Other long term (current) drug therapy | CPT/HCPCS: 11042; 97605; A6402; A6452; Z7610 ==

== ENCOUNTER 2018-10-08 08:00 | Outpatient (CLI) | payer MEDICARE, BC | END 2018-10-08 23:59 | disposition home health service (06) | LOC: WOU 08:00 | PROVIDERS: ATTEND Podiatrist Foot & Ankle Surgery | DX: I87.2 Venous insufficiency (chronic) (peripheral) (principal); L97.822 Non-pressure chronic ulcer of other part of left lower leg with fat layer exposed; L89.899 Pressure ulcer of other site, unspecified stage; L90.9 Atrophic disorder of skin, unspecified; S81.812S Laceration without foreign body, left lower leg, sequela; W22.8XXS Striking against or struck by other objects, sequela; I48.2 Chronic atrial fibrillation; R60.0 Localized edema; I73.9 Peripheral vascular disease, unspecified; I10 Essential (primary) hypertension; D68.59 Other primary thrombophilia; Z96.641 Presence of right artificial hip joint; Z87.891 Personal history of nicotine dependence | CPT/HCPCS: 11042; A6207; A6402 ==

== ENCOUNTER 2018-10-13 12:49 | Outpatient (CLI) | payer MEDICARE, BC | END 2018-10-13 23:59 | disposition home health service (06) | LOC: WOU 12:49 | PROVIDERS: ATTEND Podiatrist Foot & Ankle Surgery | DX: I87.2 Venous insufficiency (chronic) (peripheral) (principal); L97.822 Non-pressure chronic ulcer of other part of left lower leg with fat layer exposed; L89.893 Pressure ulcer of other site, stage 3; R60.0 Localized edema; Z87.828 Personal history of other (healed) physical injury and trauma; Z88.0 Allergy status to penicillin | CPT/HCPCS: 11042; A6402 ==

== ENCOUNTER 2018-10-22 07:54 | Outpatient (CLI) | payer MEDICARE, BC | END 2018-10-22 23:59 | disposition home health service (06) | LOC: WOU 07:54 | PROVIDERS: ATTEND Podiatrist Foot & Ankle Surgery | DX: I87.2 Venous insufficiency (chronic) (peripheral) (principal); L97.822 Non-pressure chronic ulcer of other part of left lower leg with fat layer exposed; I73.9 Peripheral vascular disease, unspecified; L97.222 Non-pressure chronic ulcer of left calf with fat layer exposed; I48.2 Chronic atrial fibrillation; D68.9 Coagulation defect, unspecified; Z79.01 Long term (current) use of anticoagulants; Z79.899 Other long term (current) drug therapy | CPT/HCPCS: 11042; A6402; A6452; Z7610 ==

== ENCOUNTER 2018-10-29 08:00 | Outpatient (CLI) | payer MEDICARE, BC | END 2018-10-29 23:59 | disposition home or self-care (01) | LOC: WOU 08:00 | PROVIDERS: ATTEND Podiatrist Foot & Ankle Surgery | DX: I87.312 Chronic venous hypertension (idiopathic) with ulcer of left lower extremity (principal); L97.822 Non-pressure chronic ulcer of other part of left lower leg with fat layer exposed; M79.662 Pain in left lower leg; Z88.0 Allergy status to penicillin; Z87.828 Personal history of other (healed) physical injury and trauma | CPT/HCPCS: 11042; A6402; A6452 ==

== ENCOUNTER 2018-11-05 08:05 | Outpatient (CLI) | payer MEDICARE, BC | END 2018-11-05 23:59 | disposition home health service (06) | LOC: WOU 08:05 | PROVIDERS: ATTEND Podiatrist Foot & Ankle Surgery | DX: I87.312 Chronic venous hypertension (idiopathic) with ulcer of left lower extremity (principal); L97.822 Non-pressure chronic ulcer of other part of left lower leg with fat layer exposed; Z79.01 Long term (current) use of anticoagulants | CPT/HCPCS: 11042; A6402; A6452 ==

== ENCOUNTER 2018-11-12 08:00 | Outpatient (CLI) | payer MEDICARE, BC | END 2018-11-12 23:59 | disposition home health service (06) | LOC: WOU 08:00 | PROVIDERS: ATTEND Podiatrist Foot & Ankle Surgery | DX: I87.312 Chronic venous hypertension (idiopathic) with ulcer of left lower extremity (principal); L97.822 Non-pressure chronic ulcer of other part of left lower leg with fat layer exposed; Z87.828 Personal history of other (healed) physical injury and trauma; Z79.01 Long term (current) use of anticoagulants; Z88.0 Allergy status to penicillin; L90.9 Atrophic disorder of skin, unspecified | CPT/HCPCS: 11042; A6402; A6452 ==

== ENCOUNTER 2018-11-19 08:00 | Outpatient (CLI) | payer MEDICARE, BC | END 2018-11-19 23:59 | disposition home health service (06) | LOC: WOU 08:00 | PROVIDERS: ATTEND Podiatrist Foot & Ankle Surgery | DX: I87.312 Chronic venous hypertension (idiopathic) with ulcer of left lower extremity (principal); L97.822 Non-pressure chronic ulcer of other part of left lower leg with fat layer exposed; Z79.01 Long term (current) use of anticoagulants; Z79.899 Other long term (current) drug therapy; Z87.828 Personal history of other (healed) physical injury and trauma | CPT/HCPCS: A6402; G0463 ==

== ENCOUNTER 2018-11-26 08:00 | Outpatient (CLI) | payer MEDICARE, BC | END 2018-11-26 23:59 | disposition home health service (06) | LOC: WOU 08:00 | PROVIDERS: ATTEND Podiatrist Foot & Ankle Surgery | DX: I87.312 Chronic venous hypertension (idiopathic) with ulcer of left lower extremity (principal); L97.822 Non-pressure chronic ulcer of other part of left lower leg with fat layer exposed; L90.9 Atrophic disorder of skin, unspecified; Z87.828 Personal history of other (healed) physical injury and trauma; Z88.0 Allergy status to penicillin; I87.8 Other specified disorders of veins | CPT/HCPCS: 11042; A6402; A6452 ==

== ENCOUNTER 2018-12-03 08:00 | Outpatient (CLI) | payer MEDICARE, BC | END 2018-12-03 23:59 | disposition home health service (06) | LOC: WOU 08:00 | PROVIDERS: ATTEND Podiatrist Foot & Ankle Surgery | DX: I87.302 Chronic venous hypertension (idiopathic) without complications of left lower extremity (principal) | CPT/HCPCS: A6402; A6452; G0463 ==

== ENCOUNTER 2018-12-10 08:00 | Outpatient (CLI) | payer MEDICARE, BC | END 2018-12-10 23:59 | disposition home health service (06) | LOC: WOU 08:00 | PROVIDERS: ATTEND Podiatrist Foot & Ankle Surgery | DX: I87.302 Chronic venous hypertension (idiopathic) without complications of left lower extremity (principal); B35.1 Tinea unguium | CPT/HCPCS: G0463 ==

== ENCOUNTER 2019-01-07 08:00 | Outpatient (CLI) | payer MEDICARE, BC | END 2019-01-07 23:59 | disposition home or self-care (01) | LOC: WOU 08:00 | PROVIDERS: ATTEND Podiatrist Foot & Ankle Surgery | DX: I87.302 Chronic venous hypertension (idiopathic) without complications of left lower extremity (principal); B35.1 Tinea unguium; L85.3 Xerosis cutis | CPT/HCPCS: G0463 ==

== ENCOUNTER 2019-03-04 08:00 | Outpatient (CLI) | payer MEDICARE, BC | END 2019-03-04 23:59 | disposition home or self-care (01) | LOC: WOU 08:00 | PROVIDERS: ATTEND Podiatrist Foot & Ankle Surgery | DX: I89.0 Lymphedema, not elsewhere classified (principal); R60.0 Localized edema | CPT/HCPCS: G0463 ==

== ENCOUNTER 2019-05-06 08:00 | Outpatient (CLI) | payer MEDICARE, BC | END 2019-05-06 23:59 | disposition home or self-care (01) | LOC: WOU 08:00 | PROVIDERS: ATTEND Podiatrist Foot & Ankle Surgery | DX: I87.302 Chronic venous hypertension (idiopathic) without complications of left lower extremity (principal); L90.5 Scar conditions and fibrosis of skin | CPT/HCPCS: G0463 ==

== ENCOUNTER 2019-06-24 08:00 | Outpatient (CLI) | payer MEDICARE, BC | END 2019-06-24 23:59 | disposition home or self-care (01) | LOC: WOU 08:00 | PROVIDERS: ATTEND Podiatrist Foot & Ankle Surgery | DX: Z09 Encounter for follow-up examination after completed treatment for conditions other than malignant neoplasm (principal); I87.8 Other specified disorders of veins; R60.0 Localized edema; B35.1 Tinea unguium; L90.5 Scar conditions and fibrosis of skin | CPT/HCPCS: G0463 ==

== ENCOUNTER 2019-08-24 13:55 | Outpatient (CLI) | payer MEDICARE, BC | END 2019-08-24 23:59 | disposition home or self-care (01) | LOC: WOU 13:55 | PROVIDERS: ATTEND Podiatrist Foot & Ankle Surgery | PROC: 0HQNXZZ Repair Left Foot Skin, External Approach (ICD-10-PCS; principal; 2019-08-24) | DX: S91.115A Laceration without foreign body of left lesser toe(s) without damage to nail, initial encounter (principal); R60.0 Localized edema; S90.32XA Contusion of left foot, initial encounter; Z87.891 Personal history of nicotine dependence; E78.5 Hyperlipidemia, unspecified; W18.49XA Other slipping, tripping and stumbling without falling, initial encounter; Y92.019 Unspecified place in single-family (private) house as the place of occurrence of the external cause | CPT/HCPCS: 12002; A6197; J3490 ×2 ==

== ENCOUNTER 2019-08-30 08:00 | Outpatient (CLI) | payer MEDICARE, BC | END 2019-08-30 23:59 | disposition home or self-care (01) | LOC: WOU 08:00 | PROVIDERS: ATTEND Podiatrist Foot & Ankle Surgery | DX: S91.115D Laceration without foreign body of left lesser toe(s) without damage to nail, subsequent encounter (principal); W22.8XXD Striking against or struck by other objects, subsequent encounter; L03.116 Cellulitis of left lower limb; I87.2 Venous insufficiency (chronic) (peripheral); R60.0 Localized edema | CPT/HCPCS: G0463 ==

== ENCOUNTER → 2019-09-06 | Outpatient (CLI) | payer MEDICARE, BC | END | disposition home or self-care (01) | LOC: WOU 08:00 | PROVIDERS: ATTEND Podiatrist Foot & Ankle Surgery | DX: S91.115D Laceration without foreign body of left lesser toe(s) without damage to nail, subsequent encounter (principal); W22.8XXD Striking against or struck by other objects, subsequent encounter; I87.2 Venous insufficiency (chronic) (peripheral); R60.0 Localized edema; Z79.01 Long term (current) use of anticoagulants | CPT/HCPCS: G0463 ==

== ENCOUNTER 2019-09-20 08:00 | Outpatient (CLI) | payer MEDICARE, BC | END 2019-09-20 23:59 | disposition home health service (06) | LOC: WOU 08:00 | PROVIDERS: ATTEND Podiatrist Foot & Ankle Surgery | DX: S91.115D Laceration without foreign body of left lesser toe(s) without damage to nail, subsequent encounter (principal); W22.8XXD Striking against or struck by other objects, subsequent encounter; I87.2 Venous insufficiency (chronic) (peripheral); R60.0 Localized edema | CPT/HCPCS: G0463 ==

== ENCOUNTER 2019-11-22 08:00 | Outpatient (CLI) | payer MEDICARE, BC | END 2019-11-22 23:59 | disposition home health service (06) | LOC: WOU 08:00 | PROVIDERS: ATTEND Podiatrist Foot & Ankle Surgery | DX: I87.2 Venous insufficiency (chronic) (peripheral) (principal); B35.1 Tinea unguium; R60.0 Localized edema; M79.675 Pain in left toe(s); M79.674 Pain in right toe(s); Z79.01 Long term (current) use of anticoagulants | CPT/HCPCS: G0463 ==